=== PATIENT | male | born 1960 | race African-American/Black ===

== ENCOUNTER 2017-02-02 17:48 | Inpatient (IN) | payer OTHER ==
[~2017-02-02] VITALS: Ht 188 cm; Wt 110.5 kg
[2017-02-02 18:07] VITALS: BP 118/73; PULSE 67; RESP 18; TEMP 97.6; O2SAT 99
--- NOTE | 2017-02-02 19:09 | PD ---
HPI Chief Complaint: Syncope/Near-Syncope Time Seen by Provider: 19:08 Travel History International Travel<30 days: No Contact w/Intl Traveler<30days: No Traveled to known affect area: No History of Present Illness HPI 56 YO M with PMH of HTN presents to the ED via EMS for evaluation of left ankle pain and syncopal episode. The patient states that he was fishing today and had several episodes of dizziness before the true syncopal episode. He states that he walked back to his car. When he was standing by his car he "went out." He states that during this episode he fell awkwardly on his left ankle and has been unable to bear weight since. He denies recent history of fever, headaches, CP, palpitations, cough, SOB, N/V, changes in bowel habits. His alcohol or illicit drug use. He does smoke 1 pack per day. PFSH Past Medical History Hypertension: Yes Past Surgical History Surgical History: No Previous Surgery Social History Alcohol Use: No Tobacco Use: Yes (1 PPD) Substance Use: No Allergies-Medications (Allergen,Severity, Reaction): Coded Allergies: No Known Allergies (Verified Allergy, Unknown, 02/02/17) Reported Meds & Prescriptions Reported Meds & Active Scripts Active Active Prescriptions or Reported Medications Unobtainable Review of Systems Except as stated in HPI: all other systems reviewed are Neg Physical Exam Narrative GENERAL: Well-nourished, well-developed pleasant black male in no acute distress. SKIN: Focused skin assessment warm/dry. HEAD: Normocephalic. EYES: No scleral icterus. No injection or drainage. NECK: Supple, trachea midline. No JVD or lymphadenopathy. CARDIOVASCULAR: Regular rate and rhythm without murmurs, gallops, or rubs. RESPIRATORY: Breath sounds clear and equal bilaterally. No accessory muscle use. GASTROINTESTINAL: Abdomen soft, non-tender, nondistended. NEUROLOGICAL: Awake and alert. Cranial nerves II through XII intact. Motor and sensory grossly within normal limits. Five out of 5 muscle strength in all muscle groups. Normal speech. MUSCULOSKELETAL: No cyanosis, or edema. Left lower extremity is in a splint. Palpable DP pulse. She is able to wiggle toes. Tender to palpation in the lateral aspect of the left ankle. BACK: Nontender without obvious deformity. No CVA tenderness. Data Data Last Documented VS Vital Signs Date Time Temp Pulse Resp B/P (MAP) Pulse Ox O2 Delivery O2 Flow Rate FiO2 02/02/17 21:03 80 16 140/82 (101) 100 Room Air 02/02/17 18:07 97.6 Orders Orders Electrocardiogram (02/02/17 19:16) Complete Blood Count With Diff (02/02/17 19:16) Comprehensive Metabolic Panel (02/02/17 19:16) Magnesium (Mg) (02/02/17 19:16) Ckmb (Isoenzyme) Profile (02/02/17 19:16) Troponin I (02/02/17 19:16) Act Partial Throm Time (Ptt) (02/02/17 19:16) Prothrombin Time / Inr (Pt) (02/02/17 19:16) Urinalysis - C+S If Indicated (02/02/17 19:16) Chest, Single Ap (02/02/17 19:16) Ct Brain W/O Iv Contrast(Rout) (02/02/17 19:16) Ecg Monitoring (02/02/17 19:16) Iv Access Insert/Monitor (02/02/17 19:16) Oximetry (02/02/17 19:16) Sodium Chloride 0.9% Flush (Ns Flush) (02/02/17 19:30) Sodium Chlor 0.9% 1000 Ml Inj (Ns 1000 M (02/02/17 19:16) Morphine Inj (Morphine Inj) (02/02/17 19:30) Ondansetron Inj (Zofran Inj) (02/02/17 19:30) Ankle, Complete ([id number]) (02/02/17 19:16) CKMB (02/02/17 19:25) CKMB% (02/02/17 19:25) Splinting (02/02/17 ) Consult Orthopedic (02/02/17 ) Electrocardiogram (02/02/17 20:06) Admit Order (Ed Use Only) (02/02/17 21:25) (Hub Use Only)Inp Phy Cons/Ref (02/02/17 ) Admit To Inpatient (02/02/17 ) Vital Signs (Adult) Q4H (02/02/17 21:27) Neuro Checks Q4H (02/02/17 21:27) Activity Oob With Assistance (02/02/17 21:27) Back End Engineer / Telemetry .CONTINUOUS (02/02/17 21:27) Sodium Chloride 0.9% Flush (Ns Flush) (02/02/17 21:30) Sodium Chloride 0.9% Flush (Ns Flush) (02/03/17 09:00) Basic Metabolic Panel (Bmp) (02/03/17 06:00) Complete Blood Count With Diff (02/03/17 06:00) Prothrombin Time / Inr (Pt) (02/03/17 06:00) Naloxone Inj (Narcan Inj) (02/02/17 21:30) Inpatient Certification (02/02/17 ) Labs Laboratory Tests Test 02/02/17 19:25 02/02/17 20:20 White Blood Count 9.7 TH/MM3 Red Blood Count 4.58 MIL/MM3 Hemoglobin 12.4 GM/DL Hematocrit 38.0 % Mean Corpuscular Volume 82.9 FL Mean Corpuscular Hemoglobin 27.1 PG Mean Corpuscular Hemoglobin Concent 32.7 % Red Cell Distribution Width 13.9 % Platelet Count 296 TH/MM3 Mean Platelet Volume 8.1 FL Neutrophils (%) (Auto) 57.9 % Lymphocytes (%) (Auto) 34.8 % Monocytes (%) (Auto) 5.6 % Eosinophils (%) (Auto) 1.2 % Basophils (%) (Auto) 0.5 % Neutrophils # (Auto) 5.6 TH/MM3 Lymphocytes # (Auto) 3.4 TH/MM3 Monocytes # (Auto) 0.5 TH/MM3 Eosinophils # (Auto) 0.1 TH/MM3 Basophils # (Auto) 0.0 TH/MM3 CBC Comment DIFF FINAL Differential Comment Prothrombin Time 10.4 SEC Prothromb Time International Ratio 0.9 RATIO Activated Partial Thromboplast Time 23.7 SEC Blood Urea Nitrogen 18 MG/DL Creatinine 2.26 MG/DL Random Glucose 112 MG/DL Total Protein 7.2 GM/DL Albumin 3.6 GM/DL Calcium Level 8.4 MG/DL Magnesium Level 1.8 MG/DL Alkaline Phosphatase 24 U/L Aspartate Amino Transf (AST/SGOT) 22 U/L Alanine Aminotransferase (ALT/SGPT) 28 U/L Total Bilirubin 0.2 MG/DL Sodium Level 139 MEQ/L Potassium Level 3.5 MEQ/L Chloride Level 101 MEQ/L Carbon Dioxide Level 25.0 MEQ/L Anion Gap 13 MEQ/L Estimat Glomerular Filtration Rate 30 ML/MIN Total Creatine Kinase 233 U/L Creatine Kinase MB 1.2 NG/ML Troponin I LESS THAN 0.02 NG/ML Urine Color YELLOW Urine Turbidity CLEAR Urine pH 5.0 Urine Specific [place] 1.014 Urine Protein TRACE mg/dL Urine Glucose (UA) NEG mg/dL Urine Ketones NEG mg/dL Urine Occult Blood TRACE Urine Nitrite NEG Urine Bilirubin NEG Urine Urobilinogen LESS THAN 2.0 MG/DL Urine Leukocyte Esterase NEG Urine RBC 4 /hpf Urine WBC 1 /hpf Urine Bacteria RARE /hpf Urine Granular Casts 23 /lpf Urine Mucus FEW /lpf Microscopic Urinalysis Comment CULT NOT INDICATED MDM Medical Decision Making Medical Screen Exam Complete: Yes Emergency Medical Condition: Yes Interpretation(s) EKG rate 78, sinus rhythm. Normal intervals. Normal axis. No acute ST changes. Reviewed by Dr. Evans. Differential Diagnosis syncope versus ACS versus CHF versus ankle fracture versus ankle sprain versus other Narrative Course 56 YO M with PMH of HTN presents to the ED via EMS for evaluation of left ankle pain and syncopal episode. The patient states that he was fishing today and had several episodes of dizziness before the true syncopal episode. He states that he walked back to his car. When he was standing by his car he "went out." He states that during this episode he fell awkwardly on his left ankle and has been unable to bear weight since. He denies recent history of fever, headaches, CP, palpitations, cough, SOB, N/V, changes in bowel habits. His alcohol or illicit drug use. Smokes 1 pack per day. Vitals reviewed. No focal neuro deficits on exam. No appreciable M/R/G. Chest CTAB. LLE is in a splint from EMS. Neurovascularly intact with TTP on the lateral aspect of the lower leg and ankle. IV established. Patient was administered 1 L normal saline, 4 mg Zofran , 5 mg morphine IV. EKG as above. Cardiac enzymes negative 1. CXR: No acute cardiopulmonary process. CT brain: No acute intercranial abnormality CBC: Unremarkable. Coags: INR 0.9. CMP: BUN 18, creatinine 2.26. Calcium 8.4. UA: No culture indicated Ankle x-ray: Displaced distal fibular fracture with lateral subluxation of the ankle mortise. I spoke with Dr. Antony who plans surgery tomorrow, request that the patient be ordered nothing by mouth at midnight. Splint was applied. Plan to admit for syncope workup. Patient is agreeable. I spoke with Dr. Edmonds who agrees to accept the patient to the medicine service. Please see medicine and ortho notes for disposition. Scripts Unable to Obtain Active Prescriptions or Reported Meds Shanon Berrios Feb 02, 2017 19:09
[2017-02-02] MEDS ORDERED: SODIUM CHLOR 0.9% 1000 ML INJ 1,000 ML IV ONE (19:16)
[2017-02-02 19:30] VITALS: BP 140/89; PULSE 80; RESP 16; O2SAT 100
[2017-02-02] MEDS ORDERED: ONDANSETRON HCL 4 MG/2 ML VIAL IV PUSH ONE (19:30)
[2017-02-02] MEDS ORDERED: SODIUM CHLORIDE 0.9% FLUSH 10 ML FLUSH IVF PRN (19:30)
[2017-02-02] MEDS ORDERED: MORPHINE SULFATE 8 MG/ML INJ IV PUSH ONE (19:30)
[2017-02-02 19:31] VITALS: O2SAT 100
--- NOTE | 2017-02-02 19:54 | RADRPT ---
EXAM DATE/TIME: 02/02/2017 19:28 [facility] COMPARISON: No previous studies available for comparison. INDICATIONS : Syncope. Patient passed out today. MEDICAL HISTORY : Hypertension. Smoker. SURGICAL HISTORY : None. ENCOUNTER: Initial ACUITY: 1 day PAIN SCORE: 0/10 LOCATION: Bilateral chest FINDINGS: A single view of the chest demonstrates the lungs to be symmetrically aerated without evidence of mas s, infiltrate or effusion. The cardiomediastinal contours are unremarkable. Osseous structures are intact. CONCLUSION: No evidence of acute cardiopulmonary disease. Syed Jensen MD on February 02, 2017 at 19:52 Board Certified Radiologist. This report was verified electronically.
--- NOTE | 2017-02-02 19:55 | RADRPT ---
EXAM DATE/TIME: 02/02/2017 19:30 [facility] COMPARISON: No previous studies available for comparison. INDICATIONS : Left ankle pain. Patient passed out today. MEDICAL HISTORY : Hypertension. Smoker. SURGICAL HISTORY : None. ENCOUNTER: Initial ACUITY: 1 day PAIN SCORE: 10/10 LOCATION: Left ankle. FINDINGS: There is an oblique fracture of the distal fibula with approximately 7 mm of posterolateral displacem ent. The distal tibia is intact. There is slight lateral subluxation of the ankle mortise. CONCLUSION: Mildly displaced distal fibula fracture with slight lateral subluxation of the ankle mortise. Distal tibia is intact. Syed Jensen MD on February 02, 2017 at 19:53 Board Certified Radiologist. This report was verified electronically.
[2017-02-02 20:10] LABS: AUTOMATED NEUTROPHIL # 5.6 TH/MM3 (1.8-7.7); BASOPHIL % 0.5 % (0.0-2.0); EOSINOPHIL # 0.1 TH/MM3 (0-0.4); EOSINOPHIL % 1.2 % (0.0-4.0); HEMO FLAGS DIFF FINAL; LYMPH % 34.8 % (9.0-44.0); LYMPHOCYTE # 3.4 TH/MM3 (1.0-4.8); MEAN CELL VOLUME 82.9 FL (80.0-100.0); MEAN CORPUSCULAR HEMOGLOBIN 27.1 PG (27.0-34.0); MEAN CORPUSCULAR HGB CONC 32.7 % (32.0-36.0); MONO % 5.6 % (0.0-8.0); NEUT % 57.9 % (16.0-70.0); PLATELET COUNT 296 TH/MM3 (150-450); RED BLOOD COUNT 4.58 MIL/MM3 (4.50-5.90); RED CELL DISTRIBUTION WIDTH 13.9 % (11.6-17.2); WHITE BLOOD COUNT 9.7 TH/MM3 (4.0-11.0)
[2017-02-02 20:17] LABS: APTT (PATIENT) 23.7 SEC (24.3-30.1); INTERNATIONAL NORMALIZED RATIO 0.9 RATIO; PROTHROMBIN TIME - PATIENT 10.4 SEC (9.8-11.6)
--- NOTE | 2017-02-02 20:19 | RADRPT ---
EXAM DATE/TIME: 02/02/2017 19:44 [facility] COMPARISON: No previous studies available for comparison. INDICATIONS : Syncopal episode hit back of head. RADIATION DOSE: 43.65 CTDIvol (mGy) MEDICAL HISTORY : Hypertension. SURGICAL HISTORY : None. ENCOUNTER: Initial ACUITY: 1 day PAIN SCALE: 7/10 LOCATION: cranial TECHNIQUE: Multiple contiguous axial images were obtained of the head. Using automated exposure control and adj ustment of the mA and/or kV according to patient size, radiation dose was kept as low as reasonably a chievable to obtain optimal diagnostic quality images. DICOM format image data is available electro nically for review and comparison. FINDINGS: CEREBRUM: The ventricles are normal for age. No evidence of midline shift, mass lesion, hemorrhage or acute in farction. No extra-axial fluid collections are seen. POSTERIOR FOSSA: The cerebellum and brainstem are intact. The 4th ventricle is midline. The cerebellopontine angle i s unremarkable. EXTRACRANIAL: There is mucoperiosteal thickening of the visualized ethmoid air cells. SKULL: The calvaria is intact. No evidence of skull fracture. CONCLUSION: No bleed or other acute intracranial abnormality. Chronic appearing ethmoid sinus disease. Syed Jensen MD on February 02, 2017 at 20:17 Board Certified Radiologist. This report was verified electronically.
[2017-02-02 20:31] LABS: ANION GAP 13 MEQ/L (5-15); AST (GOT) 22 U/L (15-37); BLOOD UREA NITROGEN 18 MG/DL (7-18); CHLORIDE 101 MEQ/L (98-107); GLOMERULAR FILTRATION RATE 30 ML/MIN (>89); MAGNESIUM 1.8 MG/DL (1.5-2.5); POTASSIUM 3.5 MEQ/L (3.5-5.1); SODIUM (NA) 139 MEQ/L (136-145)
[2017-02-02 20:36] LABS: ALKALINE PHOSPHATASE 24 U/L (45-117); ALT (GPT) 28 U/L (12-78); CREATINE KINASE 233 U/L (39-308); TOTAL BILIRUBIN ADULT 0.2 MG/DL (0.2-1.0)
[2017-02-02 20:47] LABS: BACTERIA, URINE RARE /hpf; BLOOD, URINE TRACE (NEG); GLUCOSE,URINE NEG (NEG); GRANULAR CAST, URINE 23 /lpf; KETONE, URINE NEG (NEG); MUCUS URINE FEW /lpf (OCC); NITRITE,URINE NEG (NEG); URINE COLOR YELLOW (YELLW/STRAW)
[2017-02-02 20:48] LABS: COMMENT (UR) CULT NOT INDICATED; CULTURE IF INDICATED CULT NOT INDICATED
[2017-02-02 20:49] LABS: CKMB 1.2 NG/ML (0.5-3.6)
[2017-02-02 21:03] VITALS: BP 140/82; PULSE 80; RESP 16; O2SAT 100
[2017-02-02] MEDS ORDERED: NALOXONE HCL 0.4 MG/ML AMP IV PRN (21:30)
[2017-02-02] MEDS ORDERED: SODIUM CHLORIDE 0.9% FLUSH 10 ML FLUSH IV FLUSH PRN (21:30)
--- NOTE | 2017-02-02 22:34 | RADRPT ---
EXAM DATE/TIME: 02/02/2017 22:00 [facility] COMPARISON: No previous studies available for comparison. INDICATIONS : Syncope. MEDICAL HISTORY : Hypertension. Tobacco use. Syncope. SURGICAL HISTORY : None. ENCOUNTER: Initial ACUITY: 1 day PAIN SCORE: 7/10 LOCATION: Bilateral neck. PEAK SYSTOLIC VELOCITIES (cm/sec): ICA/CCA RATIO: Right: 0.9 Left: 0.7 ICA: Right: 100.3 Left: 72.0 CCA: Right: 116.0 Left: 101.6 ECA: Right: 110.1 Left: 120.9 VERTEBRAL: Right: 60.9 antegrade Left: 69.8 antegrade Elevated flow velocities and ICA/CCA ratios have been found to correlate with increased degrees of vessel stenosis, calculated as percentage of diameter relative to a normal segment of distal ICA/CCA FINDINGS: RIGHT CAROTID: Trace plaque of the bulb and proximal ICA. LEFT CAROTID: Trace plaque of the bulb and proximal ICA. VERTEBRAL ARTERIES: Antegrade flow is seen in both vertebral arteries. MISCELLANEOUS: None. CONCLUSION: Minimal atherosclerotic plaque of both carotid bifurcations. No hemodynamically significant narrowing . Syed Jensen MD on February 02, 2017 at 22:32 Board Certified Radiologist. This report was verified electronically.
[2017-02-03] VITALS (8 sets, daily range): BP systolic 136–168; BP diastolic 80–98; PULSE 72–98; RESP 18–20; TEMP 97.8–98.8; O2SAT 95–98
[2017-02-03] MEDS: MORPHINE SULFATE 4 MG/ML INJ IV PRN ×5 (04:36→22:09)
[2017-02-03] MEDS: SODIUM CHLORIDE 0.9% FLUSH 10 ML FLUSH IV FLUSH SCH ×2 (12:15→22:10)
[2017-02-03 12:42] LABS: AUTOMATED NEUTROPHIL # 7.3 TH/MM3 (1.8-7.7); BASOPHIL # 0.1 TH/MM3 (0-0.2); BASOPHIL % 0.6 % (0.0-2.0); EOSINOPHIL # 0.1 TH/MM3 (0-0.4); EOSINOPHIL % 0.7 % (0.0-4.0); HEMO FLAGS DIFF FINAL; LYMPH % 26.2 % (9.0-44.0); MEAN CELL VOLUME 82.4 FL (80.0-100.0); MEAN CORPUSCULAR HEMOGLOBIN 27.1 PG (27.0-34.0); MEAN CORPUSCULAR HGB CONC 32.9 % (32.0-36.0); MONO % 7.9 % (0.0-8.0); NEUT % 64.6 % (16.0-70.0); PLATELET COUNT 281 TH/MM3 (150-450); RED BLOOD COUNT 4.61 MIL/MM3 (4.50-5.90); RED CELL DISTRIBUTION WIDTH 13.9 % (11.6-17.2); WHITE BLOOD COUNT 11.3 TH/MM3 (4.0-11.0)
[2017-02-03 12:56] LABS: PROTHROMBIN TIME - PATIENT 10.6 SEC (9.8-11.6)
[2017-02-03 13:03] LABS: BICARBONATE 28.1 MEQ/L (21.0-32.0); POTASSIUM 3.8 MEQ/L (3.5-5.1)
--- NOTE | 2017-02-03 13:59 | MB ---
cc: STANLEY BARRERA DATE OF CONSULTATION: 02/03/2017. REASON FOR CONSULTATION: Left fibula fracture. HISTORY OF PRESENT ILLNESS: Mikhail is 56-year-old male who had a syncopal episode. He had a few episodes of dizziness prior to his syncopal episode. He had been fishing. He walked back to his car. He states that he fell and does not recall the fall. He woke up with left ankle pain. He had difficulty standing or ambulating. He is currently awake on the fifth floor. He complains of left ankle pain. The pain is worse with movement. PAST MEDICAL HISTORY / ILLNESSES: Hypertension. ALLERGIES: NONE. PAST SURGICAL HISTORY: None. MEDICATIONS: Please see the electronic medical record for a complete list of his inpatient medications; this was reviewed. SOCIAL HISTORY: The patient denies alcohol or drug use. He does smoke a pack a day. FAMILY HISTORY: Noncontributory. REVIEW OF SYSTEMS: The patient denies headache, visual changes, neck pain, chest pain, abdominal pain, nausea or vomiting or recent weight loss or numbness or tingling of his extremities. He denies recent fevers or chills. He complains of left ankle pain. He did have dizziness and syncopal episode yesterday. PHYSICAL EXAMINATION: GENERAL: The patient is a pleasant 56-year male in no acute distress. He is awake and alert. He is alert and oriented x3. VITAL SIGNS: Temperature 98.7, pulse 82, respirations 20, blood pressure 150/87, O2 sat 96% on room air. HEAD: The patient is normocephalic. Pupils are equal. NECK: Soft, nontender. Trachea is midline. ABDOMEN: Soft, nontender, nondistended. EXTREMITIES: Examination of bilateral upper extremities reveals no pain with shoulder, elbow or wrist motion. He has intact sensation in all fingers. He has good capillary refill in all fingers. Skin is intact. Salon Shampoo Assistant strength is +5. Examination of the right leg reveals no pain with hip, knee or ankle motion. Skin is intact. Dorsalis pedis pulse is palpable. Sensation is intact. Examination of the left leg reveals no pain with hip or knee motion. He is diffusely tender around the ankle. There is mild swelling present. He has good capillary refill in his foot. Dorsalis pedis pulse is palpable. X-RAYS: X-rays of the left ankle were reviewed. X-rays reveal a displaced left distal fibula fracture. IMPRESSION: 1. Syncopal episode. 2. Left distal fibula fracture. PLAN: The treatment options were discussed with the patient. At this point, the patient would likely do better with open reduction internal fixation of the left fibula. At this point, he will need medical clearance because of his recent syncopal episode. The patient will need to keep his foot elevated to help his swelling. He will need to remain non-weightbearing on the left ankle. I will continue to follow the patient's progress regarding medical clearance. All questions have been answered. NOTE: A mid-level provider in my office, nurse practitioner or PA, may see this patient on a follow-up basis and continue to implement the objective of this plan including: Starting or adjusting medications, injections of muscle, tendon, bursa or joints, cast application, orthotic or brace application, physical therapy, further radiographic studies including x-ray, MRI, CT, ultrasounds or bone scan, vascular studies, neurologic studies, or other specialist consultations, and proceeding with surgical management as appropriate. MD TREE Martínez/ALCIRA /7:38 AM /1:45 PM
--- NOTE | 2017-02-03 15:20 | ECHRPT ---
Indication: syncope CONCLUSIONS Normal left ventricular size and wall thickness. The left ventricular systolic function is normal wi th an estimated ejection fraction in the range of 60-65%. Left ventricular diastolic function parameters a re normal. No wall motion abnormalities. Trace mitral valve regurgitation. BP: / HR: Rhythm: Sinus MEASUREMENTS (Male / Female) Normal Values Technical Quality:Good 2D ECHO LV Diastolic Diameter PLAX 4.2 cm 4.2 - 5.9 / 3.9 - 5.3 cm LV Systolic Diameter PLAX 3.2 cm IVS Diastolic Thickness 1.0 cm 0.6 - 1.0 / 0.6 - 0.9 cm LVPW Diastolic Thickness 0.7 cm 0.6 - 1.0 / 0.6 - 0.9 cm LV Relative Wall Thickness 0.4 RV Internal Dim ED PLAX 1.7 cm M-MODE Aortic Root Diameter MM 3.2 cm AV Cusp Separation MM 2.1 cm DOPPLER Mitral E Point Velocity 71.1 cm/s Mitral A Point Velocity 82.4 cm/s Mitral E to A Ratio 0.9 LV E' Lateral Velocity 8.4 cm/s Mitral E to LV E' Lateral Ratio 8.5 LV E' Septal Velocity 7.0 cm/s Mitral E to LV E' Septal Ratio 10.1 TR Peak Velocity 213.0 cm/s TR Peak Gradient 18.1 mmHg FINDINGS LEFT VENTRICLE Normal left ventricular size and wall thickness. The left ventricular systolic function is normal wi th an estimated ejection fraction in the range of 60-65%. Left ventricular diastolic function parameters a re normal. No wall motion abnormalities. RIGHT VENTRICLE Normal right ventricular size and systolic function. LEFT ATRIUM The left atrial size is normal. RIGHT ATRIUM The right atrial size is normal. ATRIAL SEPTUM Normal atrial septal thickness without atrial level shunting by limited color doppler interrogation. AORTA The aortic root and proximal ascending aorta are normal in size on limited imaging. MITRAL VALVE Trace mitral valve regurgitation. AORTIC VALVE Trileaflet aortic valve. No aortic valve stenosis or regurgitation. TRICUSPID VALVE Structurally normal tricuspid valve. No tricuspid valve stenosis or regurgitation. PULMONARY VALVE The pulmonary valve is not well visualized. VESSELS The inferior vena cava is normal in size. PERICARDIUM No pericardial effusion. Jorge Barraza MD (Electronically Signed) Final Date:03 February 2017 15:19
--- NOTE | 2017-02-03 17:21 | HHI.HP ---
[facility] Service [facility] Primary Care Physician [facility] Admission Diagnosis sycope, KINA, left distal fibula fracture Diagnoses: (1) Closed left ankle fracture Diagnosis: Principal (2) Syncope Diagnosis: Principal (3) Dehydration Diagnosis: Principal (4) Acute kidney injury Diagnosis: Principal Travel History International Travel<30 Days: No Contact w/Intl Traveler <30 Da: No Traveled to Known Affected Are: No History of Present Illness Mr. Rivera is a 6-year-old male. He provides a history that he was standing by his car and could not move his leg when he is falling this resulted in a fracture of his left ankle. He has no prior history of syncope. Were not associated with any palpitations but he had been having some episodes of shortness of breath previously noted today. She had been working outside and she without good by mouth intake. Workup including cardiac monitoring, echocardiogram, CT of brain, and carotid ultrasound also negative. Primary etiology for his syncopal episode is thought to be related to dehydration. Acute kidney injury was present at time of admission has improved with IV hydration further adding suspicion to dehydration as a primary cause. At this point patient is no longer having any presyncopal type symptoms. Medically he is cleared for surgical repair of left ankle fracture. Review of Systems Constitutional: DENIES: Fever, Chills, Dizziness, Change in appetite Endocrine: DENIES: Heat/cold intolerance Eyes: DENIES: Blurred vision, Diplopia, Eye pain Ears, nose, mouth, throat: DENIES: Tinnitus, Hearing loss, Vertigo Respiratory: DENIES: Apneas, Cough, Wheezing, Shortness of breath Cardiovascular: COMPLAINS OF: Syncope, DENIES: Chest pain, Palpitations Gastrointestinal: DENIES: Abdominal pain, Black stools, Bloody stools Musculoskeletal: DENIES: Joint pain, Muscle aches, Stiffness Integumentary: DENIES: Abnormal pigmentation, Nail changes, Rash Hematologic/lymphatic: DENIES: Bruising, Lymphadenopathy Immunologic/allergic: DENIES: Eczema Neurologic: DENIES: Abnormal gait Psychiatric: DENIES: Anxiety, Confusion, Hallucinations Past Family Social History Past Medical History Hypertension Past Surgical History Jaw fracture repair Circumcision Reported Medications Reported Meds & Active Scripts Active Unknown blood pressure medication Active Prescriptions or Reported Medications Unobtainable Allergies: Coded Allergies: No Known Allergies (Verified Allergy, Unknown, 02/02/17) Active Ordered Medications Administered Medications Medications (Trade) Dose Ordered Sig/Caitlin Route PRN Reason Start Time Stop Time Status Last Admin Dose Admin Sodium Chloride (NS Flush) 2 ml UNSCH PRN IV FLUSH FLUSH AFTER USING IV ACCESS 02/02/17 21:30 02/03/17 16:45 Sodium Chloride (NS Flush) 2 ml BID IV FLUSH 02/03/17 09:00 02/03/17 12:15 Morphine Sulfate (Morphine Inj) 2 mg Q3H PRN IV pain>5 02/03/17 04:30 02/03/17 16:45 Nicardipine HCl (Cardene) 30 mg Q8HR PO 02/03/17 14:00 02/03/17 16:44 Family History Cardiac murmur, coronary artery disease, SC in mother No history in father Social History Patient smokes 1 pack per day currently No alcohol abuse, past history of alcohol abuse No drug abuse Physical Exam Vital Signs Vital Signs Date Time Temp Pulse Resp B/P (MAP) Pulse Ox O2 Delivery O2 Flow Rate FiO2 02/03/17 16:48 97.8 87 18 166/95 (118) 96 02/03/17 12:42 98.3 78 18 168/98 (121) 98 02/03/17 09:25 98.2 72 18 154/93 (113) 96 02/03/17 04:00 98.7 82 20 150/87 (108) 96 02/03/17 00:00 98.5 78 18 136/80 (98) 97 02/02/17 21:03 80 16 140/82 (101) 100 Room Air 02/02/17 19:31 100 Room Air 02/02/17 19:30 80 16 140/89 (106) 100 02/02/17 18:09 75 18 97 Room Air 02/02/17 18:07 97.6 67 18 118/73 (88) 99 Physical Exam GENERAL: NAD, A&Ox3 HEAD: Normocephalic. NECK: Supple, trachea midline. No lymphadenopathy. EYES: No scleral icterus. No injection or drainage. CARDIOVASCULAR: Regular rate and rhythm without murmurs, gallops, or rubs. RESPIRATORY: Breath sounds equal bilaterally. No accessory muscle use. GASTROINTESTINAL: Abdomen soft, non-tender, nondistended. MUSCULOSKELETAL: No cyanosis, or edema. Left ankle is bandaged SKIN: Warm and dry. NEURO: No focal neurological deficitis. Laboratory Laboratory Tests Test 02/02/17 19:25 02/02/17 20:20 02/03/17 10:57 White Blood Count 9.7 11.3 Red Blood Count 4.58 4.61 Hemoglobin 12.4 12.5 Hematocrit 38.0 38.0 Mean Corpuscular Volume 82.9 82.4 Mean Corpuscular Hemoglobin 27.1 27.1 Mean Corpuscular Hemoglobin Concent 32.7 32.9 Red Cell Distribution Width 13.9 13.9 Platelet Count 296 281 Mean Platelet Volume 8.1 8.4 Neutrophils (%) (Auto) 57.9 64.6 Lymphocytes (%) (Auto) 34.8 26.2 Monocytes (%) (Auto) 5.6 7.9 Eosinophils (%) (Auto) 1.2 0.7 Basophils (%) (Auto) 0.5 0.6 Neutrophils # (Auto) 5.6 7.3 Lymphocytes # (Auto) 3.4 3.0 Monocytes # (Auto) 0.5 0.9 Eosinophils # (Auto) 0.1 0.1 Basophils # (Auto) 0.0 0.1 CBC Comment DIFF FINAL DIFF FINAL Differential Comment Prothrombin Time 10.4 10.6 Prothromb Time International Ratio 0.9 1.0 Activated Partial Thromboplast Time 23.7 Blood Urea Nitrogen 18 18 Creatinine 2.26 1.49 Random Glucose 112 87 Total Protein 7.2 Albumin 3.6 Calcium Level 8.4 8.5 Magnesium Level 1.8 Alkaline Phosphatase 24 Aspartate Amino Transf (AST/SGOT) 22 Alanine Aminotransferase (ALT/SGPT) 28 Total Bilirubin 0.2 Sodium Level 139 139 Potassium Level 3.5 3.8 Chloride Level 101 104 Carbon Dioxide Level 25.0 28.1 Anion Gap 13 7 Estimat Glomerular Filtration Rate 30 59 Total Creatine Kinase 233 Creatine Kinase MB 1.2 Troponin I LESS THAN 0.02 Urine Color YELLOW Urine Turbidity CLEAR Urine pH 5.0 Urine Specific [place] 1.014 Urine Protein TRACE Urine Glucose (UA) NEG Urine Ketones NEG Urine Occult Blood TRACE Urine Nitrite NEG Urine Bilirubin NEG Urine Urobilinogen LESS THAN 2.0 Urine Leukocyte Esterase NEG Urine RBC 4 Urine WBC 1 Urine Bacteria RARE Urine Granular Casts 23 Urine Mucus FEW Microscopic Urinalysis Comment CULT NOT INDICATED Result Diagram: 02/03/17105602/03/171056 Capdelmi VTE Risk Assessment Zayra VTE Risk Assessment: No/Low Risk (score <= 1) VTE [facility] Contraindication: LE injury/wound Caprini Risk Assessment Model Point Value = 1 Point Value = 2 Point Value = 3 Point Value = 5 Age 41-60 Minor surgery BMI > 25 kg/m2 Swollen legs Varicose veins or History of unexplained or recurrent spontaneous Oral contraceptives or hormone replacement Sepsis (< 1 month) Serious lung disease, including pneumonia (< 1 month) Abnormal pulmonary function Acute myocardial infarction Congestive heart failure (< 1 month) History of inflammatory bowel disease Medical patient at bed rest Age 61-74 Arthroscopic surgery Major open surgery (> 45 min) Laparoscopic surgery (> 45 min) Malignancy Confined to bed (> 72 hours) Immobilizing plaster cast Central venous access Age >= 75 History of VTE Family history of VTE Factor V Leiden Prothrombin [id number] Lupus anticoagulant Anticardiolipin antibodies Elevated serum homocysteine Heparin-induced thrombocytopenia Other congenital or acquired thrombophilia Stroke (< 1 month) Elective arthroplasty Hip, pelvis, or leg fracture Acute spinal cord injury (< 1 month) Prophylaxis Regimen Total Risk Factor Score Risk Level Prophylaxis Regimen 0-1 Low Early ambulation 2 Moderate Order ONE of the following: *Sequential Compression Device (SCD) *Heparin 5000 units SQ BID 3-4 Higher Order ONE of the following medications: *Heparin 5000 units SQ TID *Enoxaparin/Lovenox 40 mg SQ daily (WT < 150 kg, CrCl > 30 mL/min) *Enoxaparin/Lovenox 30 mg SQ daily (WT < 150 kg, CrCl > 10-29 mL/min) *Enoxaparin/Lovenox 30 mg SQ BID (WT < 150 kg, CrCl > 30 mL/min) AND/OR *Sequential Compression Device (SCD) 5 or more Highest Order ONE of the following medications: *Heparin 5000 units SQ TID (Preferred with Epidurals) *Enoxaparin/Lovenox 40 mg SQ daily (WT < 150 kg, CrCl > 30 mL/min) *Enoxaparin/Lovenox 30 mg SQ daily (WT < 150 kg, CrCl > 10-29 mL/min) *Enoxaparin/Lovenox 30 mg SQ BID (WT < 150 kg, CrCl > 30 mL/min) AND *Sequential Compression Device (SCD) Assessment and Plan Problem List: (1) Dehydration ICD Code: E86.0 - Dehydration (2) Syncope ICD Code: R55 - Syncope and collapse (3) Acute kidney injury ICD Code: N17.9 - Acute kidney failure, unspecified (4) Closed left ankle fracture ICD Code: S82.892A - Other fracture of left lower leg, initial encounter for closed fracture Assessment and Plan Assessment and plan 56-year-old male status post syncopal episode with left ankle fracture. Syncopal workup negative. Medically cleared for surgery. Syncope Echocardiogram is within normal limits No cardiac arrhythmias CT of brain is within normal limits Carotid ultrasound showed no stenosis Etiology appears to be dehydration combined with antihypertensive Continue IV hydration Dehydration Acute kidney injury Improving Follow renal function Continue IV hydration Hypertension Hypertension has returned Visit blood pressure treatments Left ankle fracture Medically cleared for surgery Orthopedics consulted Continue as needed pain treatments Bed rest Nicotine dependence Patient declines NicoDerm Patient counseled to quit smoking DVT prophylaxis Lovenox Physician Certification 2 Midnight Certification Type: Admission for Inpatient Services Order for Inpatient Services The services are ordered in accordance with Medicare regulations or non- Medicare payer requirements, as applicable. In the case of services not specified as inpatient-only, they are appropriately provided as inpatient services in accordance with the 2-midnight benchmark. Estimated LOS (days): 3 days is the estimated time the patient will need to remain in the hospital, assuming treatment plan goals are met and no additional complications. Post-Hospital Plan: Home José Llamas MD Feb 03, 2017 17:21
[2017-02-03] MEDS ORDERED: ENOXAPARIN SODIUM 40 MG/0.4 ML SYRINGE SQ ONE (17:30)
--- NOTE | 2017-02-03 21:34 | EKG ---
Date Performed: 02/02/2017 Time Performed: 20:06:01 PTAGE: 56 years EKG: Sinus rhythm NONSPECIFIC T-WAVE ABNORMALITY BORDERLINE ECG Compared to prior tracing no significant change DOCTOR: Jorge Luis Sandy Interpretating Date/Time 02/03/2017 21:33:37
--- NOTE | 2017-02-03 21:38 | EKG ---
Date Performed: 02/02/2017 Time Performed: 18:21:54 PTAGE: 56 years EKG: Sinus rhythm NONSPECIFIC T-WAVE ABNORMALITY BORDERLINE ECG NO PREVIOUS TRACING DOCTOR: Jorge Luis Sandy Interpretating Date/Time 02/03/2017 21:37:33
[2017-02-04] VITALS: BP 171/93; PULSE 106; RESP 18; TEMP 98; O2SAT 93
[2017-02-04] MEDS: ENALAPRILAT 1.25 MG/ML VIAL IV PUSH PRN (00:36)
[2017-02-04] MEDS: MORPHINE SULFATE 4 MG/ML INJ IV PRN ×4 (00:37→17:16)
[2017-02-04 04:00] VITALS: BP 142/93; PULSE 89; RESP 18; TEMP 98.7; O2SAT 94
[2017-02-04] MEDS ORDERED: CHLORHEXIDINE GLUCONATE 2 % 1 PACK (2 CLOTHS) TOPICAL PRN (06:00)
[2017-02-04] MEDS ORDERED: INSULIN HUMAN REGULAR 1,000 UNITS/10 ML VIAL SQ PRN (06:00)
[2017-02-04] MEDS ORDERED: LACTATED RINGER'S 1000 ML IV PRN (06:00)
[2017-02-04] MEDS ORDERED: POVIDONE IODINE 5% (ANTISEPSIS KIT) 4 APPLICATIONS EACH NARE PRN (06:00)
[2017-02-04] MEDS ORDERED: SODIUM CHLORID 0.9% 500 ML IV PRN (06:00)
--- NOTE | 2017-02-04 07:53 | PD.ORT.PN ---
Subjective Subjective Remarks s/p left ankle fx doing well. pain controlled. no new complaints Objective Vitals Vital Signs Date Time Temp Pulse Resp B/P (MAP) Pulse Ox O2 Delivery O2 Flow Rate FiO2 02/04/17 04:00 98.7 89 18 142/93 (109) 94 02/04/17 00:00 98.0 106 18 171/93 (119) 93 02/03/17 23:30 95 02/03/17 20:51 98.8 98 18 145/93 (110) 95 02/03/17 20:49 98.8 98 18 95 02/03/17 16:48 97.8 87 18 166/95 (118) 96 02/03/17 12:42 98.3 78 18 168/98 (121) 98 02/03/17 09:25 98.2 72 18 154/93 (113) 96 I/O 02/03/17 02/03/17 02/03/17 02/04/17 02/04/17 02/04/17 07:00 15:00 23:00 07:00 15:00 23:00 Output Total 1000 ml 750 ml Balance -1000 ml -750 ml Output Urine Total 1000 ml 750 ml # Voids 2 Result Diagram: 02/03/17 1057 02/03/17 1057 Other Results Laboratory Tests Test 02/03/17 10:57 Prothromb Time International Ratio 1.0 RATIO Prothrombin Time 10.6 SEC (9.8-11.6) Objective Remarks LLE: +short leg splint. intact. NVI Assessment & Plan Assessment and Plan 1) Left Fibula Fx -npo -surgery today Collin Payan Feb 04, 2017 07:53
[2017-02-04] MEDS ORDERED: WALKER/ADULT/FO1 MIS (07:54)
[2017-02-04] MEDS ORDERED: HYDR-3580 PO (07:54)
[2017-02-04 08:25] VITALS: BP 157/92; PULSE 83; RESP 20; TEMP 98.1; O2SAT 96
[2017-02-04] MEDS ORDERED: MIDAZOLAM HCL 2 MG/2 ML VIAL ONE (11:09)
[2017-02-04] MEDS ORDERED: DEXAMETHASONE SOD PHOS 4 MG/ML VIAL ONE (11:09)
[2017-02-04] MEDS ORDERED: FAMOTIDINE 20 MG/2 ML VIAL ONE (11:09)
[2017-02-04] MEDS ORDERED: VANCOMYCIN HCL 1000 MG VIAL ONE (11:11)
[2017-02-04] MEDS ORDERED: GENTAMICIN SULFATE 80 MG/2 ML VIAL ONE (11:11)
[2017-02-04] MEDS ORDERED: ceFAZolin 2 GM PREMIX 50 ML ONE (11:11)
[2017-02-04] MEDS ORDERED: SODIUM CHLOR 0.9% 250 ML INJ 250 ML ONE (11:12)
[2017-02-04] MEDS ORDERED: GLYCOPYRROLATE 1 MG/5 ML SYRINGE IV PUSH ONE (12:00)
[2017-02-04] MEDS ORDERED: ONDANSETRON HCL 4 MG/2 ML VIAL IV PUSH ONE (12:00)
--- NOTE | 2017-02-04 12:29 | PD.OP ---
cc: Michael Cronin MD Operative Report Date of Surgery: Feb 04, 2017 Preoperative Diagnosis: Displaced left distal fibula fracture Postoperative Diagnosis: Procedure: Open reduction internal fixation left distal fibula Anesthesia: Gen. Surgeon: Michael Cronin Application Penetration Tester(s): JANET Be PA-C The surgical procedure was assisted by my physician assistant coach. My P.A. presence was necessary throughout this case for the manipulation and positioning of the surgical extremity. My P.A. was assisting me throughout the duration of this procedure. The skill set of a physician assistant coach was medically necessary to complete this procedure. During the surgical case the cardiac catheterization technician was working at the back table and the physician assistant coach was directly assisting me. Operation and Findings: Plan of activity: Nonweightbearing 6 weeks, start gentle range of motion with fracture boot in 2 weeks Implants used: ITS This patient sustained an ankle injury with displaced left fibular fracture. Informed consent was obtained preoperatively after detailed discussion of risk and benefits of surgery. Operative site was marked. Patient was brought to operating room and placed on operating room table. IV sedation and GETA were administered by anesthesiologist. IV antibiotics were given prior to incision. Operative leg was prepped with alcohol followed by Hibiclens and draped in usual sterile fashion. Timeout procedure was performed. Procedure began with a 4 inch incision over the distal fibula. Subcutaneous tissues dissected with Bovie. Fracture site was visualized. Fracture was now carefully reduced. Fracture keyed into excellent alignment. Fracture tenaculums were used to hold reduction. 2.7 cortical lag screws were used to compress fracture. Multiplanar fluoroscopy revealed excellent alignment of fracture. A ITS plate was selected. Plate was provisionally held the bone with K wires. Fluoroscopy confirmed plate placement. 3.5 cortical screws were used to compress plate to bone. Multiple screws were placed on each side of the fracture. Fluoroscopy confirmed excellent of fracture with well-placed hardware. Next attention was turned towards the syndesmosis. The syndesmosis was gently stressed. The ankle was externally rotated. There was no widening of the medial clear space or syndesmosis. Next the wound was thoroughly irrigated with sterile saline. Subcutaneous tissues closed with 3-0 Vicryl. Skin was closed with 3-0 nylon. Sterile dressings were applied. Patient was placed into a well molded well-padded splint. Patient was awakened and transferred to recovery room in stable condition. Needle and sponge counts were correct. Michael Cronin MD Feb 04, 2017 12:29
[2017-02-04] MEDS ORDERED: MORPHINE SULFATE 4 MG/ML INJ IV PUSH PRN (12:30)
[2017-02-04] MEDS ORDERED: Post-op Orders (for Pharmacy) MISC XX ONE (12:30)
[2017-02-04] MEDS ORDERED: DO NOT ADM ANY ANTICOAGULANT DRUGS PRN (12:48)
[2017-02-04] MEDS ORDERED: *morphine SULFATE 8 MG/ML PERIprocedure ONLY ONE ×3 (12:57→13:25)
[2017-02-04] MEDS ORDERED: *LABETALOL HCL 100 MG/20 ML VIAL PERIprocedural Use ONLY ONE (12:57)
[2017-02-04] MEDS: *ENALAPRILAT 1.25 MG/ML VIAL PERIprocedural Use ONLY ONE (13:18)
[2017-02-04] MEDS ORDERED: hydrALAZINE HCL 20 MG/ML VIAL ONE ×2 (13:40→14:19)
[2017-02-04] MEDS ORDERED: LISI-515 PO (14:59)
[2017-02-04] MEDS ORDERED: DILT-64 PO (14:59)
[2017-02-04] MEDS ORDERED: ceFAZolin 2 GM PREMIX 50 ML IV SCH (15:00)
[2017-02-04] MEDS ORDERED: NEOSTIGMINE 3 MG/3 ML SYR IV ONE (15:14)
[2017-02-04] MEDS ORDERED: PROPOFOL 200 MG/20 ML AMP IV ONE (15:14)
[2017-02-04] MEDS ORDERED: MIDAZOLAM HCL 2 MG/2 ML VIAL IV ONE (15:14)
--- NOTE | 2017-02-04 15:49 | RADRPT ---
EXAM DATE/TIME: 02/04/2017 12:14 [place] COMPARISON: No previous studies available for comparison. INDICATIONS : Fracture, pain. MEDICAL HISTORY : Hypertension. Smoker. SURGICAL HISTORY : None. ENCOUNTER: Subsequent ACUITY: 2 days PAIN SCORE: Non-responsive. LOCATION: Left fibula. FINDINGS/CONCLUSION: Two-view left ankle demonstrates patient has had open reduction interna l fixation of a fibular fracture. There are no complications. Alignment is excellent. Emerson Gaffney MD on February 04, 2017 at 15:37 Board Certified Radiologist. This report was verified electronically.
[2017-02-04 15:57] VITALS: BP 174/97; PULSE 88; RESP 20; TEMP 97.8; O2SAT 97
[2017-02-04] MEDS: ACETAMINOPHEN/HYDROcodone 325 MG/7.5 MG TAB PO PRN ×2 (16:20→22:23)
[2017-02-04] MEDS ORDERED: ENALAPRILAT 1.25 MG/ML VIAL IV PUSH PRN (16:45)
[2017-02-04] MEDS ORDERED: cloNIDine HCL 0.1 MG TAB PO PRN (16:45)
--- NOTE | 2017-02-04 16:50 | HHI.PR ---
Subjective Remarks Left ankle fracture repaired surgically today. Doing well postop. Pain is controlled. Blood pressures are not controlled. Objective Vital Signs Date Time Temp Pulse Resp B/P (MAP) Pulse Ox O2 Delivery O2 Flow Rate FiO2 02/04/17 15:57 97.8 88 20 174/97 (122) 97 02/04/17 08:25 98.1 83 20 157/92 (113) 96 02/04/17 04:00 98.7 89 18 142/93 (109) 94 02/04/17 00:00 98.0 106 18 171/93 (119) 93 02/03/17 23:30 95 02/03/17 20:51 98.8 98 18 145/93 (110) 95 02/03/17 20:49 98.8 98 18 95 02/03/17 16:48 97.8 87 18 166/95 (118) 96 I/O 02/03/17 02/03/17 02/03/17 02/04/17 02/04/17 02/04/17 07:00 15:00 23:00 07:00 15:00 23:00 Intake Total 600 ml Output Total 1000 ml 750 ml 50 ml 275 ml Balance -1000 ml -750 ml 550 ml -275 ml Other 600 ml Output Urine Total 1000 ml 750 ml 275 ml Estimated Blood Loss 50 ml # Voids 2 Result Diagram: 02/03/17 1057 02/03/17 1057 Objective Remarks GENERAL: NAD, A&Ox3 HEAD: Normocephalic. NECK: Supple, trachea midline. No lymphadenopathy. EYES: No scleral icterus. No injection or drainage. CARDIOVASCULAR: Regular rate and rhythm without murmurs, gallops, or rubs. RESPIRATORY: Breath sounds equal bilaterally. No accessory muscle use. GASTROINTESTINAL: Abdomen soft, non-tender, nondistended. MUSCULOSKELETAL: No cyanosis, or edema. Left lower extremity is bandaged. SKIN: Warm and dry. NEURO: No focal neurological deficitis. A/P Problem List: (1) Dehydration ICD Code: E86.0 - Dehydration (2) Syncope ICD Code: R55 - Syncope and collapse (3) Acute kidney injury ICD Code: N17.9 - Acute kidney failure, unspecified (4) Closed left ankle fracture ICD Code: S82.892A - Other fracture of left lower leg, initial encounter for closed fracture Assessment and Plan Assessment and plan 56-year-old male status post syncopal episode with left ankle fracture. Syncopal workup negative. Etiology for syncope appears to be related to dehydration. Patient now status post surgical repair of left ankle fracture. Doing well post repair. When necessary enalapril and and clonidine added to help control blood pressures. Syncope Echocardiogram is within normal limits No cardiac arrhythmias CT of brain is within normal limits Carotid ultrasound showed no stenosis Etiology appears to be dehydration combined with antihypertensive Continue IV hydration Dehydration Acute kidney injury Improving Follow renal function Continue IV hydration Hypertension Hypertension has returned As needed clonidine As needed enalapril Baseline treatments with diltiazem and lisinopril resumed Follow blood pressures Left ankle fracture Status post surgical repair Orthopedics following Continue as needed pain treatments Physical therapy Nicotine dependence Patient declines NicoDerm Patient counseled to quit smoking DVT prophylaxis Lovenox Problem Qualifiers (1) Closed left ankle fracture: Qualified Codes: S82.892A - Other fracture of left lower leg, initial encounter for closed fracture José Llamas MD Feb 04, 2017 16:50
[2017-02-04 19:57] LABS: AUTOMATED NEUTROPHIL # 10.7 TH/MM3 (1.8-7.7); BASOPHIL % 0.2 % (0.0-2.0); HEMATOCRIT 39.5 % (39.0-51.0); HEMO FLAGS DIFF FINAL; LYMPH % 6.9 % (9.0-44.0); LYMPHOCYTE # 0.8 TH/MM3 (1.0-4.8); MEAN CELL VOLUME 82.3 FL (80.0-100.0); MEAN CORPUSCULAR HGB CONC 32.8 % (32.0-36.0); NEUT % 91.9 % (16.0-70.0); PLATELET COUNT 300 TH/MM3 (150-450); RED BLOOD COUNT 4.79 MIL/MM3 (4.50-5.90); WHITE BLOOD COUNT 11.7 TH/MM3 (4.0-11.0)
[2017-02-04 20:00] VITALS: BP 170/90; PULSE 84; RESP 20; TEMP 97.8; O2SAT 98
[2017-02-04 20:27] LABS: ANION GAP 9 MEQ/L (5-15); AST (GOT) 33 U/L (15-37); BICARBONATE 26.2 MEQ/L (21.0-32.0); BLOOD UREA NITROGEN 19 MG/DL (7-18); CHLORIDE 98 MEQ/L (98-107); GLOMERULAR FILTRATION RATE 59 ML/MIN (>89); POTASSIUM 3.9 MEQ/L (3.5-5.1); SODIUM (NA) 133 MEQ/L (136-145)
[2017-02-04 20:28] LABS: ALT (GPT) 39 U/L (12-78)
[2017-02-04 20:31] LABS: ALKALINE PHOSPHATASE 25 U/L (45-117); TOTAL BILIRUBIN ADULT 0.3 MG/DL (0.2-1.0)
[2017-02-04 22:02] VITALS: O2SAT 98
[2017-02-04] MEDS: SODIUM CHLORIDE 0.9% FLUSH 10 ML FLUSH IV FLUSH SCH (22:23)
[2017-02-05] VITALS: BP 169/90; PULSE 91; RESP 20; TEMP 98.3; O2SAT 95
[2017-02-05 04:00] VITALS: BP 176/86; PULSE 89; RESP 20; TEMP 97.9; O2SAT 94
[2017-02-05] MEDS: ACETAMINOPHEN/HYDROcodone 325 MG/7.5 MG TAB PO PRN (05:32)
[2017-02-05] MEDS: ENALAPRILAT 1.25 MG/ML VIAL IV PUSH PRN (05:36)
--- NOTE | 2017-02-05 07:12 | PD.ORT.PN ---
Subjective Subjective Remarks POD 1 s/p ORIF left fibula doing well. pain controlled. no complaints. Objective Vitals Vital Signs Date Time Temp Pulse Resp B/P (MAP) Pulse Ox O2 Delivery O2 Flow Rate FiO2 02/05/17 04:00 97.9 89 20 176/86 (116) 94 02/05/17 00:00 98.3 91 20 169/90 (116) 95 02/04/17 22:02 98 21 02/04/17 20:00 97.8 84 20 170/90 (116) 98 02/04/17 19:30 98.7 78 16 160/91 (114) 99 Nasal Cannula 2 02/04/17 17:20 19 02/04/17 17:20 19 02/04/17 15:57 97.8 88 20 174/97 (122) 97 02/04/17 14:15 78 17 162/99 (120) 95 Nasal Cannula 2 02/04/17 14:00 78 17 157/106 (123) 95 Nasal Cannula 2 02/04/17 13:45 78 15 176/100 (125) 95 Nasal Cannula 2 02/04/17 13:30 85 17 178/100 (126) 95 Nasal Cannula 2 02/04/17 13:15 80 15 190/106 (134) 96 Nasal Cannula 2 02/04/17 13:00 91 14 187/97 (127) 97 Nasal Cannula 2 02/04/17 12:51 97.7 94 14 221/118 (152) 92 Nasal Cannula 2 02/04/17 08:25 98.1 83 20 157/92 (113) 96 I/O 02/04/17 02/04/17 02/04/17 02/05/17 02/05/17 02/05/17 07:00 15:00 23:00 07:00 15:00 23:00 Intake Total 600 ml 240 ml Output Total 50 ml 275 ml Balance 550 ml -35 ml Intake Oral 240 ml Other 600 ml Output Urine Total 275 ml Estimated Blood Loss 50 ml # Voids 2 1 1 Result Diagram: 02/04/17184502/04/171845 Objective Remarks LLE: +short leg splint. intact. NVI Assessment & Plan Assessment and Plan 1) Left Fibula Fx s/p ORIF - POD 1 -NWB -elevate -ortho cleared for DC -f/u with Simeon or PA in 2 weeks Collin Payan Feb 05, 2017 07:12
[2017-02-05 08:12] VITALS: BP 168/86; PULSE 83; RESP 18; TEMP 97.8; O2SAT 95
[2017-02-05] MEDS ORDERED: LISINOPRIL 20 MG TAB PO SCH (09:00)
[2017-02-05] MEDS ORDERED: DILTIAZEM-CD 240 MG CAP ER PO SCH (09:00)
[2017-02-05] MEDS ORDERED: DOCU100C PO (10:09)
[2017-02-05] MEDS: SODIUM CHLORIDE 0.9% FLUSH 10 ML FLUSH IV FLUSH SCH (10:20)
[2017-02-05 11:04] LABS: HEMATOCRIT 37.6 % (39.0-51.0); MEAN CELL VOLUME 82.5 FL (80.0-100.0); MEAN CORPUSCULAR HEMOGLOBIN 26.4 PG (27.0-34.0); PLATELET COUNT 292 TH/MM3 (150-450); RED BLOOD COUNT 4.56 MIL/MM3 (4.50-5.90); REVIEW FLAG FINAL; WHITE BLOOD COUNT 14.5 TH/MM3 (4.0-11.0)
[2017-02-05 11:27] LABS: BICARBONATE 28.6 MEQ/L (21.0-32.0); POTASSIUM 3.6 MEQ/L (3.5-5.1)
[2017-02-05 11:54] VITALS: BP 171/95; PULSE 78; RESP 18; TEMP 97.9; O2SAT 95
[2017-02-05 12:39] VITALS: PULSE 96
--- NOTE | 2017-02-05 13:52 | HHI.DS ---
Discharge Summary Admission Date Feb 02, 2017 at 21:29 Discharge Date: Feb 05, 2017 Admitting Diagnosis sycope, KINA, left distal fibula fracture (1) Dehydration ICD Code: E86.0 - Dehydration Diagnosis: Principal (2) Syncope ICD Code: R55 - Syncope and collapse Diagnosis: Principal (3) Acute kidney injury ICD Code: N17.9 - Acute kidney failure, unspecified Diagnosis: Principal (4) Closed left ankle fracture ICD Code: S82.892A - Other fracture of left lower leg, initial encounter for closed fracture Diagnosis: Principal Procedures Surgical left ankle fracture repair Brief History - From Admission Mr. Rivera is a 6-year-old male. He provides a history that he was standing by his car and could not move his leg when he is falling this resulted in a fracture of his left ankle. He has no prior history of syncope. Were not associated with any palpitations but he had been having some episodes of shortness of breath previously noted today. She had been working outside and she without good by mouth intake. Workup including cardiac monitoring, echocardiogram, CT of brain, and carotid ultrasound also negative. Primary etiology for his syncopal episode is thought to be related to dehydration. Acute kidney injury was present at time of admission has improved with IV hydration further adding suspicion to dehydration as a primary cause. At this point patient is no longer having any presyncopal type symptoms. Medically he is cleared for surgical repair of left ankle fracture. CBC/BMP: 02/05/17 0600 02/05/17 1009 Significant Findings Laboratory Tests Test 02/02/17 19:25 02/02/17 20:20 02/03/17 10:57 02/04/17 18:46 Hemoglobin 12.4 GM/DL (13.0-17.0) 12.5 GM/DL (13.0-17.0) 12.9 GM/DL (13.0-17.0) Hematocrit 38.0 % (39.0-51.0) 38.0 % (39.0-51.0) Activated Partial Thromboplast Time 23.7 SEC (24.3-30.1) Creatinine 2.26 MG/DL (0.60-1.30) 1.49 MG/DL (0.60-1.30) 1.49 MG/DL (0.60-1.30) Random Glucose 112 MG/DL (74-106) 145 MG/DL (74-106) Calcium Level 8.4 MG/DL (8.5-10.1) Alkaline Phosphatase 24 U/L (45-117) 25 U/L (45-117) Estimat Glomerular Filtration Rate 30 ML/MIN (>89) 59 ML/MIN (>89) 59 ML/MIN (>89) Troponin I LESS THAN 0.02 NG/ML Urine Occult Blood TRACE (NEG) Urine RBC 4 /hpf (0-3) Urine Bacteria RARE /hpf (NONE) Urine Mucus FEW /lpf (OCC) White Blood Count 11.3 TH/MM3 (4.0-11.0) 11.7 TH/MM3 (4.0-11.0) Neutrophils (%) (Auto) 91.9 % (16.0-70.0) Lymphocytes (%) (Auto) 6.9 % (9.0-44.0) Neutrophils # (Auto) 10.7 TH/MM3 (1.8-7.7) Lymphocytes # (Auto) 0.8 TH/MM3 (1.0-4.8) Blood Urea Nitrogen 19 MG/DL (7-18) Sodium Level 133 MEQ/L (136-145) Test 02/05/17 06:00 02/05/17 10:09 White Blood Count 14.5 TH/MM3 (4.0-11.0) Hemoglobin 12.0 GM/DL (13.0-17.0) Hematocrit 37.6 % (39.0-51.0) Mean Corpuscular Hemoglobin 26.4 PG (27.0-34.0) Blood Urea Nitrogen 21 MG/DL (7-18) Creatinine 1.32 MG/DL (0.60-1.30) Sodium Level 135 MEQ/L (136-145) Estimat Glomerular Filtration Rate 68 ML/MIN (>89) Hospital Course Mr. Rivera is a 56-year-old male. He is admitted after having a left ankle fracture. The injury occurred during a syncopal episode. Patient has been working outside in the heat not drinking well. Etiology is determined to be from dehydration and transient hypotension. No findings syncopal workup to suggest another etiology. Patient was cleared for surgery and had surgical repair of the left ankle. He is now doing well postop and ambulating well with a walker. Medically clear for discharge today. Pt Condition on Discharge: Stable Discharge Disposition: Discharge Home Discharge Time: <= 30 minutes Discharge Instructions DIET: Follow Instructions for: As Tolerated, No Restrictions Activities you can perform: Regular-No Restrictions Follow up Referrals: Orthopedics - 2 Weeks @ [facility] with Michael Mcgee MD PCP Follow-up - 2 Weeks New Medications: Docusate Sodium (Docusate Sodium) 100 Mg Cap 100 MG PO BID PRN for CONSTIPATION, #60 CAP 0 Refills Hydrocodone-Acetaminophen (Hydrocodone-Acetaminophen) 7.5-325 mg Tab 1 TAB PO Q4H PRN for PAIN, #60 TAB 0 Refills Walker/Adult/Folding (Walker/Adult/Folding) 1 Mis Mis EA .ROUTE DIRECTED, #1 0 Refills Continued Medications: Diltiazem CD 24 HR (Diltiazem CD 24 HR) 240 Mg Caper 240 MG PO DAILY, #30 CAP 0 Refills Lisinopril (Lisinopril) 20 Mg Tab 20 MG PO DAILY, #30 TAB 0 Refills José Llamas MD Feb 05, 2017 13:52
== END 2017-02-05 12:44 | disposition home or self-care (01) | DRG 493 ==
LOC: NEPC 17:48 → NEDA 21:29 → OBSVTOIN 21:29 → N05A 22:53
PROVIDERS: ADMIT Hospitalist; ATTEND Hospitalist
PROC: 0QSK04Z Reposition Left Fibula with Internal Fixation Device, Open Approach (ICD-10-PCS; principal; 2017-02-04 11:25)
DX: S82.832A Other fracture of upper and lower end of left fibula, initial encounter for closed fracture (principal); N17.9 Acute kidney failure, unspecified; R55 Syncope and collapse; I10 Essential (primary) hypertension; F17.210 Nicotine dependence, cigarettes, uncomplicated; E86.0 Dehydration; W18.39XA Other fall on same level, initial encounter
CPT/HCPCS: 70450; 71010; 73600; 73610; 76000; 80048; 80053; 81001; 82550; 82552; 83735; 84484; 85025; 85027; 85610; 85730; 86850; 86900; 86901; 93005; 93306; 93880; 94150; 96361; 96374; 96375; C1713; J0360; J0690; J1100; J1580; J1650; J2250; J2270; J2405; J2710; J3010; J3370; J7030; J7050